=== PATIENT | male | born 1980 | race African-American/Black ===

== ENCOUNTER 2021-04-20 03:07 | Emergency (ER) | payer OTHER ==
[~2021-04-20] VITALS: Ht 170.2 cm; Wt 80.7 kg
[2021-04-20 03:23] VITALS: BP 153/100
[2021-04-20] MEDS ORDERED: AMOX875T2 PO (03:37)
--- NOTE | 2021-04-20 03:39 | NUR ---
Patient discharged to home in stable condition. Written and verbal after care instructions given. Patient verbalizes understanding of instruction. pt ambulatory with a steady gait
== END 2021-04-20 03:39 | disposition home or self-care (01) ==
LOC: ER 03:14
DX: T16.2XXA Foreign body in left ear, initial encounter (principal); X58.XXXA Exposure to other specified factors, initial encounter; Y93.89 Activity, other specified; Y92.89 Other specified places as the place of occurrence of the external cause; Y99.8 Other external cause status